=== PATIENT | male | born 1960 | race Caucasian/White ===

== ENCOUNTER 2020-12-12 02:30 | Emergency (ER) | payer OTHER ==
[~2020-12-12 02:30] MED LIST: AMARYL2 MG PO; GLUCOPHAGE1000 MG PO; HUMULIN R100 UNIT/1 SC; LIPITOR20 MG PO; ZESTRIL2.5 MG PO
== END 2020-12-12 03:22 | disposition home or self-care (01) ==
LOC: FER 02:30
DX: U07.1 COVID-19 (principal); E78.5 Hyperlipidemia, unspecified; I10 Essential (primary) hypertension; E11.9 Type 2 diabetes mellitus without complications; Z88.0 Allergy status to penicillin
CPT/HCPCS: 99284